=== PATIENT | male | born 1960 | race Two or more races ===

== ENCOUNTER 2019-05-31 12:50 | Emergency (ER) | payer OTHER ==
[~2019-05-31] VITALS: Ht 167.6 cm; Wt 83.5 kg
[2019-05-31] MEDS ORDERED: ZIAC 2.5-6.251 EACH (13:01)
== END 2019-05-31 17:04 | disposition home or self-care (01) ==
LOC: ER 12:50
DX: M62.838 Other muscle spasm (principal)

== ENCOUNTER → 2019-06-12 | Outpatient (CLI) | payer OTHER ==
[~2019-06-12] MED LIST: ZIAC 2.5-6.251 EACH
== END | disposition home or self-care (01) ==
LOC: RAD 12:22
DX: M54.6 Pain in thoracic spine (principal)

== ENCOUNTER 2020-10-21 13:21 | Emergency (ER) | payer OTHER ==
[~2020-10-21] VITALS: Ht 167.6 cm; Wt 84.4 kg
== END 2020-10-21 15:28 | disposition home or self-care (01) ==
LOC: ER 13:21
DX: G40.89 Other seizures (principal); R42 Dizziness and giddiness; Z03.818 Encounter for observation for suspected exposure to other biological agents ruled out

== ENCOUNTER 2022-07-27 07:20 | Outpatient (CLI) | payer OTHER | END 2022-07-27 07:21 | disposition home or self-care (01) | LOC: NUCLEAR 07:20 | PROVIDERS: ATTEND Internal Medicine Hematology & Oncology | DX: D45 Polycythemia vera (principal); D75.9 Disease of blood and blood-forming organs, unspecified; K76.81 Hepatopulmonary syndrome; R16.1 Splenomegaly, not elsewhere classified; Z88.8 Allergy status to other drugs, medicaments and biological substances; Z88.6 Allergy status to analgesic agent | CPT/HCPCS: 78215; A9541 ==